=== PATIENT | female | born 1995 | race Caucasian/White ===

== ENCOUNTER 2018-07-23 18:25 | Observation (INO) | payer MEDICAID ==
[~2018-07-23] VITALS: Ht 154.9 cm; Wt 83.5 kg
== END 2018-07-23 19:00 | disposition home or self-care (01) ==
LOC: 8 EST LDRP 18:25
PROVIDERS: ADMIT Obstetrics & Gynecology; ATTEND Obstetrics & Gynecology
DX: O12.03 Gestational edema, third trimester (principal); Z3A.28 28 weeks gestation of pregnancy
CPT/HCPCS: 99281; G0378

== ENCOUNTER → 2018-07-23 | Emergency (ER) | payer MEDICAID ==
[~2018-07-23] MED LIST: PNV1TABL76 MT
== END | disposition home or self-care (01) ==
LOC: ER 17:30
DX: Z53.21 Procedure and treatment not carried out due to patient leaving prior to being seen by health care provider (principal)

== ENCOUNTER 2018-08-30 06:15 | Observation (INO) | payer MEDICAID ==
[~2018-08-30] VITALS: Ht 154.9 cm; Wt 85.7 kg
[2018-08-30] MEDS ORDERED: LACTATED RINGERS 1,000 ML IV SCH (07:15)
[2018-08-30] MEDS ORDERED: ONDANSETRON HCL 4MG/2ML INJ IV SCH (07:15)
[2018-08-30 07:42] LABS: CHLORIDE 106 mEq/L (98-107)
[2018-08-30 07:48] LABS: CLARITY URINE CLOUDY (CLEAR); COLOR URINE AMBER (YELLOW); KETONES URINE 1+ (NEGATIVE); LEUKOCYTE ESTERASE URINE 1+ (NEGATIVE); NITRITE URINE NEGATIVE (NEGATIVE); OCCULT BLOOD URINE NEGATIVE (NEGATIVE); PROTEIN URINE 1+ (NEGATIVE); SPECIFIC GRAVITY URINE 1.035 (1.005-1.030)
[2018-08-30 08:21] LABS: HEMATOCRIT. 32.2 % (36.0-48.0); HEMOGLOBIN. 10.9 g/dL (12.0-16.0); MEAN CORPUSCULAR HEMOGLOBIN 32.5 pg (28.0-32.0); MEAN CORPUSCULAR VOLUME 96.1 fL (81.0-99.0); MEAN PLATELET VOLUME 8.8 fl (7.4-10.4); PLATELET 282 x1000/uL (130-400); RED BLOOD CELL COUNT 3.35 mill/uL (4.2-5.4); RED CELL DISTRIBUTION WIDTH 13.5 % (11.6-14.6)
[2018-08-30] MEDS ORDERED: CEFAZOLIN 1000MG PREMIX 50 ML IV SCH (09:00)
[2018-08-30 09:07] LABS: PLATELET ESTIMATE NORMAL
== END 2018-08-30 09:40 | disposition home or self-care (01) ==
LOC: 8 EST LDRP 06:15
PROVIDERS: ADMIT Obstetrics & Gynecology; ATTEND Obstetrics & Gynecology
DX: O21.2 Late vomiting of pregnancy (principal); O26.893 Other specified pregnancy related conditions, third trimester; R19.7 Diarrhea, unspecified; R10.30 Lower abdominal pain, unspecified; Z3A.34 34 weeks gestation of pregnancy
CPT/HCPCS: 36415; 96360; 96361; 96365; 96375; 99281; G0378; J0690; J2405

== ENCOUNTER 2018-09-26 13:55 | Observation (INO) | payer MEDICAID ==
[~2018-09-26] VITALS: Ht 154.9 cm; Wt 87.5 kg
[2018-10-11] MEDS ORDERED: PNV1TABL76 MT (10:48)
== END 2018-10-11 11:00 | disposition home or self-care (01) ==
LOC: 8 EST LDRP 10-11 07:59
PROVIDERS: ADMIT Obstetrics & Gynecology; ATTEND Obstetrics & Gynecology
DX: O26.893 Other specified pregnancy related conditions, third trimester (principal); M54.9 Dorsalgia, unspecified; O48.0 Post-term pregnancy; Z3A.40 40 weeks gestation of pregnancy
CPT/HCPCS: 99281; G0378

== ENCOUNTER 2018-10-18 02:20 | Inpatient (IN) | payer MEDICAID ==
[~2018-10-18] VITALS: Ht 154.9 cm; Wt 86.2 kg
[2018-10-18] MEDS ORDERED: CARBOPROST TROMETHAMINE 250 MCG/ML AMPUL IM PRN (03:00)
[2018-10-18] MEDS ORDERED: LIDOCAINE HCL 1% 20ML VIAL (Pyxis) INJ INFIL SCH (03:00)
[2018-10-18] MEDS ORDERED: METHYLERGONOVINE MALEATE 0.2 MG/ML IM PRN (03:00)
[2018-10-18] MEDS ORDERED: NALOXONE HCL 0.4 MG/ML 1ML VIAL IM PRN (03:00)
[2018-10-18] MEDS: LACTATED RINGERS 1,000 ML IV SCH ×2 (03:46→06:14)
[2018-10-18 04:07] LABS: BASOPHILS % 0.6 % (0.0-2.0); EOSINOPHILS % 0.9 % (0.0-5.0); HEMOGLOBIN. 11.8 g/dL (12.0-16.0); LYMPHOCYTES % 29.8 % (20.0-50.0); MEAN CORPUSCULAR HEMOGLOBIN 32.7 pg (28.0-32.0); MEAN CORPUSCULAR VOLUME 94.3 fL (81.0-99.0); MEAN PLATELET VOLUME 9.1 fl (7.4-10.4); MONOCYTES % 6.7 % (2.0-8.0); PLATELET 250 x1000/uL (130-400); RED CELL DISTRIBUTION WIDTH 13.4 % (11.6-14.6)
[2018-10-18 04:07] LABS: CLARITY URINE TURBID (CLEAR); COLOR URINE YELLOW (YELLOW); KETONES URINE NEGATIVE (NEGATIVE); LEUKOCYTE ESTERASE URINE 3+ (NEGATIVE); NITRITE URINE NEGATIVE (NEGATIVE); OCCULT BLOOD URINE 3+ (NEGATIVE); PH URINE 8.5 (4.5-8.0); PROTEIN URINE 2+ (NEGATIVE); SPECIFIC GRAVITY URINE 1.006 (1.005-1.030); UROBILINOGEN URINE 0.2 E.U./dL (0.2-1.0)
[2018-10-18 04:12] LABS: INR 0.9; PARTIAL THROMBOPLASTIN TIME 24.7 sec (23.4-31.0); PROTHROMBIN TIME 9.2 sec (9.6-11.0)
[2018-10-18 04:37] LABS: *BARBITURATES SCREEN URINE NEGATIVE (NEGATIVE); *BENZODIAZEPINES SCREEN URINE NEGATIVE (NEGATIVE); *COCAINE SCREEN URINE NEGATIVE (NEGATIVE); METHADONE URINE SCREEN NEGATIVE (NEGATIVE); OPIATES URINE SCREEN NEGATIVE (NEGATIVE)
[2018-10-18 04:38] LABS: *AMPHETAMINES SCREEN URINE NEGATIVE (NEGATIVE); CANNABINOID URINE SCREEN NEGATIVE (NEGATIVE); PHENCYCLIDINE URINE SCREEN NEGATIVE (NEGATIVE)
[2018-10-18] MEDS: DEXT 5%/LR + PITOCIN 20UNITS/L 1,000 ML IV SCH ×2 (04:55→09:57)
[2018-10-18 05:01] LABS: HEPATITIS B SURFACE ANTIGEN NEGATIVE
[2018-10-18 09:19] LABS: BG BASE EXCESS -16.9 mmol/L (-2.0-2.0); BG FRACTION INSPIRED OXYGEN 21; BG HCO3 ACT 18.6 mmol/L (22.0-26.0); BG PCO2 101.8 mmHg (35.0-45.0); BG PO2 < 30.3 mmHg (75.0-100.0); BG SAMPLE SITE CORD; BG VENT MODE ROOM AIR
[2018-10-18 09:24] LABS: BG BASE EXCESS -7.9 mmol/L (-2.0-2.0); BG FRACTION INSPIRED OXYGEN 21; BG HCO3 ACT 19.3 mmol/L (22.0-26.0); BG OXYGEN SATURATION 86.2 % (92.0-98.5); BG PCO2 45.5 mmHg (35.0-45.0); BG PH 7.246 (7.350-7.450); BG PO2 59.1 mmHg (75.0-100.0); BG SAMPLE SITE CORD; BG VENT MODE ROOM AIR
[2018-10-18] MEDS: HYDROMORPHONE HCL/PF 2MG/ML CPJ IV PRN ×3 (09:52→11:44)
[2018-10-18] MEDS ORDERED: LANOLIN OINT 0.25 GM TUBE TOP PRN (10:15)
[2018-10-18] MEDS ORDERED: IBUPROFEN 400MG TABLET PO PRN (10:15)
[2018-10-18] MEDS ORDERED: BISACODYL 10MG SUPP PR PRN (10:15)
[2018-10-18] MEDS ORDERED: RHO(D) IMMUNE GLOBULIN 300 MCG/SYR IM PRN (10:15)
[2018-10-18] MEDS ORDERED: HYDROCODONE/ACETAMINOPHEN 5/325MG TABLET PO PRN (10:15)
[2018-10-18] MEDS ORDERED: DEXT 5%/LR + PITOCIN 20UNITS/L 1,000 ML IV SCH (10:15)
[2018-10-18] MEDS ORDERED: TETANUS, DIPHTHERIA, PERTUSSIS VAC/PF 0.5ML (>7YR OLD) IM ONE (11:00)
[2018-10-18] MEDS ORDERED: INFLUENZA VIRUS VACCINE(AFLURIA) 0.5ML SYR IM ONE (11:00)
[2018-10-18] MEDS: ONDANSETRON HCL 4MG/2ML INJ IV PRN ×2 (12:11→15:20)
[2018-10-18 12:30] VITALS: BP 134/80
[2018-10-18] MEDS ORDERED: LACTATED RINGERS 1,000 ML IV SCH (12:45)
[2018-10-18 13:00] VITALS: BP 140/91
[2018-10-18] MEDS: MAGNESIUM/ALUMINUM HYDROXIDE/SIMETHICONE 30ML UDC PO SCH ×2 (13:00→21:00)
[2018-10-18] MEDS: SIMETHICONE 80MG TABLET CHEW PO SCH ×2 (13:00→21:00)
[2018-10-18 15:00] VITALS: BP 129/77
[2018-10-18 16:00] VITALS: BP 130/88
[2018-10-18] MEDS ORDERED: DEXAMETHASONE 10 MG/ML VIAL IV NR (16:45)
[2018-10-18] MEDS ORDERED: METOCLOPRAMIDE HCL 10MG/2ML VIAL IV NR (16:45)
[2018-10-18] MEDS: IBUPROFEN 800MG TABLET PO PRN (17:00)
[2018-10-18] MEDS ORDERED: ONDANSETRON HCL 4MG/2ML INJ IV PRN (17:15)
[2018-10-18 20:00] VITALS: BP 115/73
[2018-10-18] MEDS: DOCUSATE SODIUM 100MG CAPSULE PO SCH (21:00)
[2018-10-18] MEDS ORDERED: DIPHENHYDRAMINE 25MG CAPSULE PO PRN (21:00)
[2018-10-19] MEDS: IBUPROFEN 800MG TABLET PO PRN ×3 (00:47→16:58)
[2018-10-19 04:00] VITALS: BP 115/71
[2018-10-19 05:58] LABS: BASOPHILS % 0.2 % (0.0-2.0); EOSINOPHILS % 0.3 % (0.0-5.0); HEMATOCRIT. 29.2 % (36.0-48.0); HEMOGLOBIN. 10.1 g/dL (12.0-16.0); LYMPHOCYTES % 18.7 % (20.0-50.0); MEAN CORPUSCULAR HEMOGLOBIN 32.9 pg (28.0-32.0); MEAN CORPUSCULAR VOLUME 95.2 fL (81.0-99.0); MEAN PLATELET VOLUME 8.8 fl (7.4-10.4); MONOCYTES % 7.1 % (2.0-8.0); NEUTROPHILS % 73.7 % (40.0-76.0); PLATELET 228 x1000/uL (130-400); RED BLOOD CELL COUNT 3.07 mill/uL (4.2-5.4); RED CELL DISTRIBUTION WIDTH 13.6 % (11.6-14.6)
[2018-10-19 09:00] VITALS: BP 114/77
[2018-10-19] MEDS: PRENATAL VIT/FE FUMARATE/FA TABLET PO SCH (09:13)
[2018-10-19] MEDS: FERROUS SULFATE 325MG TABLET PO SCH ×3 (09:13→16:59)
[2018-10-19] MEDS: MAGNESIUM/ALUMINUM HYDROXIDE/SIMETHICONE 30ML UDC PO SCH ×3 (09:14→20:17)
[2018-10-19] MEDS: SIMETHICONE 80MG TABLET CHEW PO SCH ×3 (09:14→20:17)
[2018-10-19 17:00] VITALS: BP 125/81
[2018-10-19 20:00] VITALS: BP 111/84
[2018-10-19] MEDS: DOCUSATE SODIUM 100MG CAPSULE PO SCH (20:17)
[2018-10-20] VITALS: BP 112/85
[2018-10-20] MEDS: IBUPROFEN 800MG TABLET PO PRN ×3 (01:39→16:16)
[2018-10-20 09:00] VITALS: BP 108/73
[2018-10-20] MEDS: PRENATAL VIT/FE FUMARATE/FA TABLET PO SCH (09:08)
[2018-10-20] MEDS: FERROUS SULFATE 325MG TABLET PO SCH ×3 (09:08→17:53)
[2018-10-20] MEDS: SIMETHICONE 80MG TABLET CHEW PO SCH ×3 (09:09→17:54)
[2018-10-20] MEDS: MAGNESIUM/ALUMINUM HYDROXIDE/SIMETHICONE 30ML UDC PO SCH ×3 (09:27→17:30)
[2018-10-20 16:24] VITALS: BP 117/66
[2018-10-20 20:00] VITALS: BP 112/70
== END 2018-10-20 20:45 | disposition home or self-care (01) | DRG 540 ==
LOC: 8 EST LDRP 02:20 → OBSVTOIN 02:20 → 8EST 16:08
PROVIDERS: ADMIT Specialist; ATTEND Specialist
PROC: 10D00Z1 Extraction of Products of Conception, Low, Open Approach (ICD-10-PCS; principal; 2018-10-18)
PROC: 3E0234Z Introduction of Serum, Toxoid and Vaccine into Muscle, Percutaneous Approach (ICD-10-PCS; 2018-10-18)
DX: O69.0XX0 Labor and delivery complicated by prolapse of cord, not applicable or unspecified (principal); E66.9 Obesity, unspecified; D64.9 Anemia, unspecified; O32.2XX0 Maternal care for transverse and oblique lie, not applicable or unspecified; O99.214 Obesity complicating childbirth; O26.893 Other specified pregnancy related conditions, third trimester; O90.81 Anemia of the puerperium; O99.314 Alcohol use complicating childbirth; Z3A.41 41 weeks gestation of pregnancy; Z37.0 Single live birth; Z67.11 Type A blood, Rh negative
CPT/HCPCS: 36415; 36600; 80305; 82805; 86592; 86703; 86762; 86850; 86900; 87340; 88307; J1100; J1170; J2405; J2590; J2765; J7120